=== PATIENT | female | born 1950 | race Caucasian/White ===

== ENCOUNTER 2021-06-21 17:55 | Emergency (ER) | payer BC, OTHER ==
[2021-06-21 18:09] VITALS: BP 118/76; TEMP 97; BMI 28.3
[2021-06-21] MEDS ORDERED: ONDANSETRON 4 MG/2 ML VIAL IVPUSH ONE (18:32)
[2021-06-21] MEDS ORDERED: SODIUM CHLORIDE 0.9% 500 ML INFUS.BAG IV ONE (18:32)
[2021-06-21] MEDS ORDERED: ACETAMINOPHEN 1000 MG/100 ML BAG IVPB ONE (18:45)
[2021-06-21] MEDS ORDERED: ACETAMINOPHEN INJECTION 100 ML IVPB ONE (19:04)
[2021-06-21] MEDS ORDERED: ONDANSETRON 4 MG/2 ML VIAL ONE (19:04)
[2021-06-21 19:58] LABS: CALCIUM 9.1 mg/dL (8.5-10.1)
[2021-06-21 19:59] LABS: ALBUMIN 4.1 g/dl (3.4-5.0); BLOOD UREA NITROGEN 18.4 mg/dL (7-18)
[2021-06-21 20:03] LABS: BILIRUBIN,TOTAL 0.3 mg/dL (0.2-1); TOT PROT 7.4 g/dl (6.4-8.2)
[2021-06-21 20:12] LABS: BASO % 0.4 % (0-2.0); EOS % 0.4 % (0-4.5); HEMATOCRIT 43.9 % (32.4-45.2); HEMOGLOBIN 14.8 GM/dL (10.7-15.3); LYMPH % 15.5 % (8-40); MCH 29.5 pg (25.7-33.7); MCHC 33.6 g/dl (32.0-36.0); MEAN CELL VOLUME 87.8 fl (80-96); MEAN PLT VOLUME 8.5 fl (7.5-11.1); MONO % 4.1 % (3.8-10.2); NEUT % 79.6 % (42.8-82.8); PLATELET COUNT 253 10^3/uL (134-434); RDW 13.7 % (11.6-15.6); WHITE BLOOD COUNT 10.5 K/mm3 (4.0-10.0)
[2021-06-21 21:07] VITALS: PULSE 72
== END 2021-06-21 21:08 | disposition home or self-care (01) ==
LOC: JER 17:55
PROC: 3E0333Z Introduction of Anti-inflammatory into Peripheral Vein, Percutaneous Approach (ICD-10-PCS; principal; 2021-06-21)
PROC: 3E033GC Introduction of Other Therapeutic Substance into Peripheral Vein, Percutaneous Approach (ICD-10-PCS; 2021-06-21)
DX: S09.90XA Unspecified injury of head, initial encounter (principal); S06.0X0A Concussion without loss of consciousness, initial encounter; W01.0XXA Fall on same level from slipping, tripping and stumbling without subsequent striking against object, initial encounter
CPT/HCPCS: 36415; 70450-TC; 72125-TC; 80053; 85025; 93005; 93010; 99285-25